=== PATIENT | female | born 1980 | race Caucasian/White ===

== ENCOUNTER 2016-11-25 12:51 | Inpatient (IN) | payer MEDICAID ==
[2016-11-25] VITALS (8 sets, daily range): BP systolic 123–152; BP diastolic 62–78; PULSE 65–81; RESP 18–20; Ht 154.9 cm; Wt 97.3 kg
[~2016-11-25] VITALS: Ht 154.9 cm; Wt 97.3 kg
[2016-11-25] MEDS ORDERED: LACTATED RINGER'S 1,000 ML IV SCH (13:23)
[2016-11-25] MEDS ORDERED: CARBOPROST 250 MCG INJ IM PRN (13:30)
[2016-11-25] MEDS ORDERED: BUTORPHANOL 2 MG INJ IV PRN (13:30)
[2016-11-25] MEDS ORDERED: OXYTOCIN 30 UNITS/LR 500 ML IV PRN (13:30)
[2016-11-25] MEDS ORDERED: HYDROCODONE/APAP (5/325) TAB PO PRN (13:30)
[2016-11-25] MEDS ORDERED: LIDOCAINE 1% (MPF) 30 ML INJ INJ PRN (13:30)
[2016-11-25] MEDS ORDERED: METHYLERGONOVINE 0.2 MG INJ IM PRN (13:30)
[2016-11-25] MEDS ORDERED: OXYTOCIN 30 UNITS/LR 500 ML IV SCH (13:30)
[2016-11-25] MEDS ORDERED: IBUPROFEN 600 MG TAB PO PRN (13:30)
[2016-11-25] MEDS ORDERED: MISOPROSTOL 200 MCG TAB PR PRN (13:30)
[2016-11-25] MEDS ORDERED: DINOPROSTONE 10 MG VAG SUPP VAG ONE (14:00)
[2016-11-25 14:03] LABS: BASOPHILS % 0.3 % (0.0-2.0); EOSINOPHILS # 0.1 10^3/ul (0.0-0.5); EOSINOPHILS % 0.9 % (0.0-7.0); HEMATOCRIT 39.3 % (37.0-47.0); HEMOGLOBIN 13.3 g/dl (12.0-16.0); LYMPHOCYTES # 1.5 10^3/ul (0.8-2.9); LYMPHOCYTES % 19.6 % (15.0-51.0); MEAN CORPUSCULAR HEMOGLOBIN 28.5 pg (29.0-33.0); MEAN CORPUSCULAR HGB CONC 33.8 g/dl (32.0-37.0); MEAN CORPUSCULAR VOLUME 84.2 fl (82.0-101.0); MEAN PLATELET VOLUME 11.1 fl (7.4-10.4); MONOCYTE # 0.4 10^3/ul (0.3-0.9); MONOCYTES % 5.6 % (0.0-11.0); NEUTROPHIL # 5.5 10^3/ul (1.6-7.5); NEUTROPHILS % 73.1 % (39.0-77.0); PLATELET COUNT 226 10^3/UL (140-415); RED BLOOD COUNT 4.67 10^6/ul (4.20-5.40); RED CELL DISTRIBUTION WIDTH 14.6 % (11.5-14.5); WHITE BLOOD COUNT 7.5 10^3/ul (4.8-10.8)
[2016-11-25 14:18] LABS: INR 0.95; PROTIME 12.7 Sec (12.2-14.2)
[2016-11-25] MEDS ORDERED: AMPICILLIN 2 GM/NS (PMX) 100 ML IVPB ONE (15:00)
[2016-11-25] MEDS ORDERED: LACTATED RINGER'S 1,000 ML IV PRN (15:00)
--- NOTE | 2016-11-25 15:00 | RADRPT ---
PROCEDURE: US OB. CLINICAL INDICATION: Size and dates , gestational diabetes TECHNIQUE: Multiple sonographic images of the pelvis and gravid uterus were obtained. The images were reviewed on a PACS workstation. COMPARISON: No prior studies are available for comparison. FINDINGS: There is a single viable intrauterine gestation. Cardiac activity is present with 148 beats per min ramona. There is a vertex presentation. The placenta is anterior. There is no evidence for an abruption or placenta previa. Measurements were made in order to determine age. The results are as follows: BPD =9.6 cm HC =33.8 cm AC =34.3 cm FL =7.8 cm Estimated gestational age of approximately 39 weeks and 0 days based on ultrasound measurements. Clinical age: 40 weeks and 0 days. The estimated date of delivery is 12/02/16, based on ultrasound measurements. The EFW = 3591 g, 47.5%, based on LMP age. RPTAT: AA IMPRESSION: Single viable intrauterine gestation of approximately 39 weeks and 0 days based on ultrasound measu rements. .Coy Pulido MD, MD Date Time Electronically viewed and signed by .Coy Pulido MD, on 11/25/2016 15:00 .S/
[2016-11-25] MEDS ORDERED: AMPICILLIN 1 GM/NS (PMX) 50 ML IVPB SCH (19:00)
--- NOTE | 2016-11-25 20:12 | HP ---
Date/Time of Note Date/Time of Note DATE: 11/25/16 TIME: 20:10 OB - History Hx of Present Free Text/Dictation 40Wks GDM Care: Good Care Ultrasounds: Normal mid trimester US Obstetrical Complications: Gestational Diabetes Past Family/Social History * Past Medical, Surgical, Family and Obstetric Histories reviewed from chart. OB Admission Exam Vital Signs Vital Signs Vital Signs Date Time Temp Pulse Resp B/P Pulse Ox O2 Delivery O2 Flow Rate FiO2 11/25/16 13:16 98.5 81 20 123/78 Room Air Physical Exam Abdomen: WNL Cervical Dilatation: None Effacement: 0% Station: Ballotable Membranes: Intact Heart Rate: 140's Accelerations: Accelerations Present Decelerations: No Decelerations Varibility: Moderate Contractions on Admission: None Last 72 hourBlood Glucose Bedside Glucose - 72 Hours Test 11/25/16 15:58 Bedside Glucose 92mg/dL (70-220) Last 72 hours Lab Results CBC & BMP 11/25/16 13:43 OB Assessment/Plan Reason for admission: induction of labor Induction Method: other Other plan: TERRENCE Price M.D. Nov 25, 2016 20:12
--- NOTE | 2016-11-25 20:15 | LDN ---
Date/Time of Note Date/Time of Note DATE: 11/25/16 TIME: 20:12 Delivery Summary Weeks of Gestation 40+Wks Placenta Delivered: Spontaneously Anesthesia type: None Estimated blood loss: 200 Sponge & Needle done & correct: Yes All needle counts correct: Yes Any foreign bodies felt in the: No Problems: Infant Delivery Information Apgars 1 Minute: 8 5 Minute: 9 Suctioning Nose & mouth suctioned at ector: Yes Delee suction performed: Yes Umbilical Cord Umbilical cord with: 3 Vessels Cord presentations: no nuchal cord Cord Blood was obtained: Yes Mother & Baby Disposition Disposition Mom & Baby to Maternity; Good: Yes TERRENCE QUINTANILLA M.D. Nov 25, 2016 20:15
[2016-11-25] MEDS: OXYTOCIN 30 UNITS/LR 500 ML IV SCH ×2 (20:23→21:38)
--- NOTE | 2016-11-25 20:27 | LDN ---
Date/Time of Note Date/Time of Note DATE: 11/25/16 TIME: 20:26 Delivery Summary OB stat called and walked into room and pt with precipitous labor and delivery. no complications Placenta Delivered: Spontaneously Meconium: none Episiotomy: No Laceration repair: none Anesthesia type: None Estimated blood loss: 100 Sponge & Needle done & correct: Yes All needle counts correct: Yes Any foreign bodies felt in the: No Problems: Infant Delivery Information Sex Sex: male Suctioning Nose & mouth suctioned at ector: Yes Delee suction performed: No Umbilical Cord Umbilical cord with: 3 Vessels Cord presentations: no nuchal cord Cord Blood was obtained: Yes DAVIDA DAWN MD Nov 25, 2016 20:27
[2016-11-25] MEDS: LABETALOL 200 MG TAB PO SCH (22:23)
[2016-11-26] MEDS ORDERED: WITCH HAZEL/GLYCERIN PAD PR PRN (00:30)
[2016-11-26] MEDS ORDERED: OXYTOCIN 30 UNITS/LR 500 ML IV PRN (00:30)
[2016-11-26] MEDS ORDERED: CARBOPROST 250 MCG INJ IM PRN (00:30)
[2016-11-26] MEDS ORDERED: ONDANSETRON 4 MG INJ IV PRN (00:30)
[2016-11-26] MEDS ORDERED: LANOLIN 7 GM TUBE TOP PRN (00:30)
[2016-11-26] MEDS ORDERED: ZOLPIDEM 5 MG TAB PO PRN (00:30)
[2016-11-26] MEDS ORDERED: SENNA/DOCUSATE NA (8.6MG/50MG) TAB PO PRN (00:30)
[2016-11-26] MEDS ORDERED: MISOPROSTOL 200 MCG TAB PR PRN (00:30)
[2016-11-26] MEDS ORDERED: BENZOCAINE 20% 56 ML SPRAY TOP PRN (00:30)
[2016-11-26] MEDS ORDERED: METHYLERGONOVINE 0.2 MG INJ IM PRN (00:30)
[2016-11-26] MEDS: IBUPROFEN 600 MG TAB PO SCH ×4 (00:45→17:16)
[2016-11-26] MEDS: LACTATED RINGER'S 1,000 ML IV* SCH ×3 (02:35→16:05)
[2016-11-26 04:00] VITALS: BP 118/65; PULSE 71; RESP 19
[2016-11-26 06:34] LABS: BASOPHILS % 0.2 % (0.0-2.0); EOSINOPHILS % 0.3 % (0.0-7.0); HEMATOCRIT 33.5 % (37.0-47.0); HEMOGLOBIN 11.2 g/dl (12.0-16.0); LYMPHOCYTES # 2.5 10^3/ul (0.8-2.9); LYMPHOCYTES % 20.5 % (15.0-51.0); MEAN CORPUSCULAR HEMOGLOBIN 28.1 pg (29.0-33.0); MEAN CORPUSCULAR HGB CONC 33.4 g/dl (32.0-37.0); MEAN CORPUSCULAR VOLUME 84.2 fl (82.0-101.0); MEAN PLATELET VOLUME 10.9 fl (7.4-10.4); MONOCYTE # 0.8 10^3/ul (0.3-0.9); MONOCYTES % 6.5 % (0.0-11.0); NEUTROPHIL # 8.6 10^3/ul (1.6-7.5); NEUTROPHILS % 71.9 % (39.0-77.0); PLATELET COUNT 184 10^3/UL (140-415); RED BLOOD COUNT 3.98 10^6/ul (4.20-5.40); RED CELL DISTRIBUTION WIDTH 14.5 % (11.5-14.5)
[2016-11-26 08:35] VITALS: BP 138/73
[2016-11-26] MEDS: LABETALOL 200 MG TAB PO SCH ×2 (09:00→21:00)
[2016-11-26] MEDS: SENNA/DOCUSATE NA (8.6MG/50MG) TAB PO SCH ×2 (09:11→21:49)
[2016-11-26] MEDS: OXYCODONE/ASPIRIN (4.88/325) TAB PO PRN ×2 (14:31→22:59)
[2016-11-26 17:47] VITALS: BP 127/65; PULSE 71; RESP 18
[2016-11-26 20:00] VITALS: BP 131/69; PULSE 71; RESP 20
--- NOTE | 2016-11-26 22:26 | DS ---
Date/Time of Note Date/Time of Note DATE: 11/26/16 TIME: 22:26 Discharge Summary Admission/Discharge Info Admit Date/Time Nov 25, 2016 at 12:51 Discharge Date/Time Discharge Diagnosis Patient Condition: Good Procedures Vaginal delivery Hospital Course Uneventful Primary Care Provider Care Physician No Primary Pending Labs Laboratory Tests Test 11/26/16 05:26 White Blood Count 12.010^3/ul (4.8-10.8) Red Blood Count 3.9810^6/ul (4.20-5.40) Hemoglobin 11.2g/dl (12.0-16.0) Hematocrit 33.5% (37.0-47.0) Mean Corpuscular Volume 84.2fl (82.0-101.0) Mean Corpuscular Hemoglobin 28.1pg (29.0-33.0) Mean Corpuscular Hemoglobin Concent 33.4g/dl (32.0-37.0) Red Cell Distribution Width 14.5% (11.5-14.5) Platelet Count 48034^3/UL (140-415) Mean Platelet Volume 10.9fl (7.4-10.4) Neutrophils % 71.9% (39.0-77.0) Lymphocytes % 20.5% (15.0-51.0) Monocytes % 6.5% (0.0-11.0) Eosinophils % 0.3% (0.0-7.0) Basophils % 0.2% (0.0-2.0) Nucleated Red Blood Cells % 0.0/100WBC (0.0-0.0) Neutrophils # 8.610^3/ul (1.6-7.5) Lymphocytes # 2.510^3/ul (0.8-2.9) Monocytes # 0.810^3/ul (0.3-0.9) Eosinophils # 0.010^3/ul (0.0-0.5) Basophils # 0.010^3/ul (0.0-0.1) Nucleated Red Blood Cells # 0.010^3/ul (0.0-0.0) TERRENCE QUINTANILLA M.D. Nov 26, 2016 22:26
--- NOTE | 2016-11-26 22:26 | QN ---
Documentation Comment PPD#1 is stable afebrile tolerates diet No VB +BM +Voids VS stable Gen NAD Abd soft NT ND Genitalia No blood at perinium --->discharge Home TERRENCE QUINTANILLA M.D. Nov 26, 2016 22:25
[2016-11-27 04:00] VITALS: BP 129/64; PULSE 67; RESP 18
[2016-11-27] MEDS: IBUPROFEN 600 MG TAB PO SCH ×3 (05:40→11:46)
[2016-11-27] MEDS ORDERED: DIPHTH/TET/ACEL PERTUSS (ADULT) 0.5 ML VIAL IM* ONE (09:00)
[2016-11-27] MEDS: LABETALOL 200 MG TAB PO SCH (09:00)
[2016-11-27] MEDS: SENNA/DOCUSATE NA (8.6MG/50MG) TAB PO SCH (09:55)
== END 2016-11-27 12:48 | disposition home or self-care (01) | DRG 775 ==
LOC: L-D 12:51 → PP1 23:11
PROVIDERS: ADMIT Obstetrics & Gynecology; ATTEND Obstetrics & Gynecology
PROC: 3E033VJ Introduction of Other Hormone into Peripheral Vein, Percutaneous Approach (ICD-10-PCS; 2016-11-25)
PROC: 10E0XZZ Delivery of Products of Conception, External Approach (ICD-10-PCS; principal; 2016-11-25 10:00)
DX: O48.0 Post-term pregnancy (principal); O24.429 Gestational diabetes mellitus in childbirth, unspecified control; Z3A.40 40 weeks gestation of pregnancy; Z37.0 Single live birth
CPT/HCPCS: 76815; 82962; 85025; 85610; 85730; 86592; 86850; 86900; 86901; 90715; J0290; J2590; J7120

== ENCOUNTER 2017-06-05 15:52 | Emergency (ER) | END 2017-06-05 18:00 | disposition home or self-care (01) ==